=== PATIENT | female | born 1960 | race Caucasian/White ===

== ENCOUNTER 2019-12-23 09:17 | Emergency (ER) | payer BC ==
[2019-12-23] MEDS ORDERED: KETOROLAC 30 MG/ML 1 ML VIAL IVP STA (09:40)
[2019-12-23] MEDS ORDERED: SODIUM CHLORIDE 0.9% 500 ML 500 ML IV STA (09:40)
[2019-12-23] MEDS ORDERED: LIDOCAINE 5% PATCH TOPICAL STA (09:41)
--- NOTE | 2019-12-23 09:42 | ED ---
General Adult HPI - General Chief complaint: Chest Pain Stated complaint: Chest Pain Time Seen by Provider: 12/23/19 09:27 Source: patient Mode of arrival: ambulatory Limitations: no limitations - History of Present Illness Initial comments: Dictation was produced using [employer] dictation software. please excuse any grammatical, word or spelling errors. This patient was cared for during a federal and state declared state of emergency secondary to Covid 19 Chief Complaint: 59-year-old female she presents today with chest pain. History of Present Illness: 59-year-old female with no significant past medical history presents with chest pain. She reports that her pain is started this morning while she was watering the garden hose. She states she has pain whenever she touches her anterior chest or moves about. She states that her pain is sharp and localized to the anterior chest. She states the pain as sharp although severe. Does not radiate to the back. No numbness and paresthesias to the arms or legs. She states that her pain started when she was pulling the water hose aggressively to water the plants that her home. She has no history of coronary artery disease. Urinalysis diaphoresis or nausea. The ROS documented in this emergency department record has been reviewed and confirmed by me. Those systems with pertinent positive or negative responses have been documented in the HPI. All other systems are other negative and/or noncontributory. PHYSICAL EXAM: General Impression: Alert and oriented x3, not in acute distress HEENT: Normocephalic atraumatic, extra-ocular movements intact, pupils equal and reactive to light bilaterally, mucous membranes moist. Cardiovascular: Heart regular rate and rhythm Chest: Able to complete full sentences, no retractions, no tachypnea, reproducible chest pain with palpation to the sternum, pain is also reproduced with manipulation of the bilateral upper extremities Abdomen: abdomen soft, non-tender, non-distended, no organomegaly Musculoskeletal: Pulses present and equal in all extremities, no peripheral edema Motor: no focal deficits noted Neurological: CN II-XII grossly intact, no focal motor or sensory deficits noted Skin: Intact with no visualized rashes Psych: Normal affect and mood ED course: 59-year-old female with clinical presentation consistent with musculoskeletal chest pain. vital signs upon arrival are within acceptable limits. EKG is unremarkable. Laboratory evaluation obtained showing no acute processes.. Patient reevaluated at bedside after initiation of Toradol and Lidoderm patch. She states she is feeling significant relief. Patient clear for discharge and advised to follow- up with primary care physician. She is told to return to the emergency Department with any sort worsening symptoms. Otherwise patient will be discharged. EKG interpretation: Ventricular rate is 4, normal sinus rhythm, GA interval 140, QRS 80, QTc 445. No GA prolongation, no QTC prolongation, no ST or T-wave changes noted. Overall, this EKG is unremarkable - Related Data Home Medications Medication Instructions Recorded Confirmed ALPRAZolam [Xanax] 0.25 mg PO DAILY PRN 12/23/19 12/23/19 Acetaminophen [Tylenol Arthritis] 650 mg PO DAILY PRN 12/23/19 12/23/19 Citalopram Hydrobromide [CeleXA] 40 mg PO DAILY 12/23/19 12/23/19 Diazepam [Valium] 5 mg PO HS PRN 12/23/19 12/23/19 Diclofenac Sodium Gel [Voltaren 2 gm TOPICAL QID PRN 12/23/19 12/23/19 Gel] Hydrochlorothiazide [Hydrodiuril] 12.5 mg PO DAILY PRN 12/23/19 12/23/19 Levothyroxine Sodium [Synthroid] 175 mcg PO DAILY 12/23/19 12/23/19 Naproxen 500 mg PO BID 12/23/19 12/23/19 Allergies Allergy/AdvReac Type Severity Reaction Status Date / Time No Known Allergies Allergy Verified 12/23/19 10:41 Review of Systems ROS Statement: Those systems with pertinent positive or pertinent negative responses have been documented in the HPI. ROS Other: All systems not noted in ROS Statement are negative. Past Medical History Past Medical History: No Reported History History of Any Multi-Drug Resistant Organisms: None Reported Past Surgical History: Cholecystectomy, Hysterectomy, Orthopedic Surgery, Tonsillectomy Additional Past Surgical History / Comment(s): ankle Past Psychological History: Anxiety Smoking Status: Never smoker Past Alcohol Use History: Occasional Past Drug Use History: None Reported General Exam Limitations: no limitations Course Vital Signs 12/23/19 09:21 Temperature 98.2 F Pulse Rate 67 Respiratory 18 Rate Blood Pressure 141/83 O2 Sat by Pulse 100 Oximetry Medical Decision Making - Lab Data Result diagrams: 12/23/19 09:37 12/23/19 09:37 Lab Results 12/23/19 12/23/19 Range/Units 09:37 09:37 WBC 4.8 (3.8-10.6) k/uL RBC 4.63 (3.80-5.40) m/uL Hgb 14.2 (11.4-16.0) gm/dL Hct 44.9 (34.0-46.0) % MCV 97.1 (80.0-100.0) fL MCH 30.8 (25.0-35.0) pg MCHC 31.7 (31.0-37.0) g/dL RDW 12.7 (11.5-15.5) % Plt Count 191 (150-450) k/uL Neutrophils % 48 % Lymphocytes % 40 % Monocytes % 7 % Eosinophils % 3 % Basophils % 1 % Neutrophils # 2.3 (1.3-7.7) k/uL Lymphocytes # 1.9 (1.0-4.8) k/uL Monocytes # 0.3 (0-1.0) k/uL Eosinophils # 0.1 (0-0.7) k/uL Basophils # 0.0 (0-0.2) k/uL Sodium 135 L (137-145) mmol/L Potassium 5.3 H (3.5-5.1) mmol/L Chloride 104 (98-107) mmol/L Carbon Dioxide 22 (22-30) mmol/L Anion Gap 9 mmol/L BUN 14 (7-17) mg/dL Creatinine 0.59 (0.52-1.04) mg/dL Est GFR (CKD-EPI)AfAm >90 (>60 ml/min/1.73 sqM) Est GFR (CKD-EPI)NonAf >90 (>60 ml/min/1.73 sqM) Glucose 106 H (74-99) mg/dL Calcium 9.0 (8.4-10.2) mg/dL Disposition Clinical Impression: Chest pain Disposition: HOME SELF-CARE Condition: Good Instructions (If sedation given, give patient instructions): Chest Pain (ED) Is patient prescribed a controlled substance at d/c from ED?: No Referrals: Raffi Gregory MD [Primary Care Provider] - 1-2 days Time of Disposition: 11:37
[2019-12-23 09:55] LABS: Basophils % (A) 1 %; Eosinophils # (A) 0.1 k/uL (0-0.7); Eosinophils % (A) 3 %; HCT 44.9 % (34.0-46.0); HGB 14.2 gm/dL (11.4-16.0); Lymphocytes # (A) 1.9 k/uL (1.0-4.8); Lymphocytes % (A) 40 %; MCH 30.8 pg (25.0-35.0); MCHC 31.7 g/dL (31.0-37.0); MCV 97.1 fL (80.0-100.0); Mean Platelet Volume 7.9; Monocytes # (A) 0.3 k/uL (0-1.0); Monocytes % (A) 7 %; Neutrophils # (A) 2.3 k/uL (1.3-7.7); Neutrophils % (A) 48 %; Platelet Count 191 k/uL (150-450); RBC 4.63 m/uL (3.80-5.40); RDW 12.7 % (11.5-15.5); WBC 4.8 k/uL (3.8-10.6)
--- NOTE | 2019-12-23 10:05 | XR ---
EXAMINATION TYPE: XR chest 2V DATE OF EXAM: 12/23/2019 COMPARISON: NONE HISTORY: Chest pain. TECHNIQUE: Frontal and lateral views of the chest are obtained. FINDINGS: Overlying EKG leads are seen. There is no focal air space opacity, pleural effusion, or pne umothorax seen. The cardiac silhouette size is upper limits of normal. The osseous structures are intact. Cholecystectomy clips are noted. IMPRESSION: No acute cardiopulmonary process.
[2019-12-23 10:07] LABS: African American GFR (CKD) >90 (>60 ml/min/1.73 sqM); Anion Gap 9 mmol/L; Blood Urea Nitrogen 14 mg/dL (7-17); Carbon Dioxide 22 mmol/L (22-30); Chloride 104 mmol/L (98-107); Glucose 106 mg/dL (74-99); Non-African American GFR(CKD) >90 (>60 ml/min/1.73 sqM); Sodium 135 mmol/L (137-145)
[2019-12-23 10:17] LABS: Potassium 5.3 mmol/L (3.5-5.1)
[2019-12-23 11:53] VITALS: BP 119/70; PULSE 65; RESP 16; TEMP 98.3
== END 2019-12-23 11:56 | disposition home or self-care (01) ==
LOC: EC 09:17
DX: R07.89 Other chest pain (principal); F41.9 Anxiety disorder, unspecified; Z79.1 Long term (current) use of non-steroidal anti-inflammatories (NSAID); Z79.890 Hormone replacement therapy; Z79.899 Other long term (current) drug therapy
CPT/HCPCS: 36415; 93005; 80048; 85025; 71046; 99285; 96374; 96361; J1885

== ENCOUNTER 2021-02-09 09:31 | Emergency (ER) | payer BC ==
[2021-02-09 09:42] VITALS: RESP 18; TEMP 98.1
[2021-02-09] MEDS ORDERED: ASPIRIN 81 MG PO STA (10:11)
[2021-02-09] MEDS ORDERED: SODIUM CHLORIDE 0.9% 1,000 ML IV STA (10:11)
[2021-02-09] MEDS ORDERED: KETOROLAC 15 MG/ML 1 ML VIAL IVP STA (10:12)
--- NOTE | 2021-02-09 10:27 | ED ---
Chest Pain HPI - General Chief Complaint: Chest Pain Stated Complaint: shoulder & jaw pain Time Seen by Provider: 02/09/21 09:50 Source: patient, family, RN notes reviewed Mode of arrival: wheelchair Limitations: no limitations - History of Present Illness Initial Comments: This is a 6-year-old female history of thyroid disease and anxiety who states sh e had acid 7 AM this morning of midsternal chest pain 8/10 severity also some pain to the jaw and left arm. She states that the pain most part was sharp with respect to the jaw and arm pain she also states the pain from her chest radiated directly to her back. This was described as pressure-like pain MD Complaint: chest pain - Related Data Home Medications Medication Instructions Recorded Confirmed Citalopram Hydrobromide [CeleXA] 40 mg PO DAILY 12/23/19 02/09/21 Levothyroxine Sodium [Synthroid] 175 mcg PO DAILY 12/23/19 02/09/21 hydroCHLOROthiazide [Hydrodiuril] 12.5 mg PO DAILY PRN 12/23/19 02/09/21 Cholecalciferol [Vitamin D3 (25 25 mcg PO DAILY 02/09/21 02/09/21 Mcg = 1000 Iu)] Loratadine [Claritin] 10 mg PO DAILY 02/09/21 02/09/21 Multivitamins, Thera [Multivitamin 1 tab PO DAILY 02/09/21 02/09/21 (formulary)] peppermint oiL [Peppermint Oil] 50 mg PO DAILY 02/09/21 02/09/21 Previous Rx's Medication Instructions Recorded Ibuprofen 800 mg PO Q6HR PRN #20 tablet 02/09/21 Orphenadrine [Norflex] 100 mg PO Q12H #7 tablet.er 02/09/21 Allergies Allergy/AdvReac Type Severity Reaction Status Date / Time metformin AdvReac Stomach Verified 02/09/21 11:31 Pain Review of Systems ROS Statement: Those systems with pertinent positive or pertinent negative responses have been documented in the HPI. ROS Other: All systems not noted in ROS Statement are negative. EKG Findings - EKG Results: EKG: interpreted by LATRELL, WNL, sinus rhythm, normal axis, normal QRS, normal ST/T, no acute changes (Normal sinus rhythm of 76. Interval 144 QRS 82 QT since QTC 410/461, No acute ST-T wave changes) Past Medical History Past Medical History: No Reported History History of Any Multi-Drug Resistant Organisms: None Reported Past Surgical History: Cholecystectomy, Hysterectomy, Orthopedic Surgery, Tonsillectomy Additional Past Surgical History / Comment(s): ankle Past Psychological History: Anxiety Smoking Status: Never smoker Past Alcohol Use History: Occasional Past Drug Use History: None Reported General Exam - General Exam Comments Initial Comments: This is a well-developed well-nourished awake alert oriented 3 female Limitations: no limitations General appearance: alert, anxious Head exam: Present: atraumatic, normocephalic, normal inspection Eye exam: Present: normal appearance, PERRL, EOMI. Absent: scleral icterus, conjunctival injection, periorbital swelling ENT exam: Present: normal exam, mucous membranes moist Neck exam: Present: normal inspection, full ROM, other (No stridor JVD or bruits). Absent: tenderness, meningismus, lymphadenopathy Respiratory exam: Present: normal lung sounds bilaterally, chest wall tenderness (Reproducible tenderness palpation on the left and right sternal margins no step-off or crepitation this does reproduce the patient's pain with radiation to the back.). Absent: respiratory distress, wheezes, rales, rhonchi, stridor Cardiovascular Exam: Present: regular rate, normal rhythm, normal heart sounds. Absent: systolic murmur, diastolic murmur, rubs, gallop, clicks GI/Abdominal exam: Present: soft, normal bowel sounds. Absent: distended, tenderness, guarding, rebound, rigid Extremities exam: Present: normal inspection, full ROM, normal capillary refill. Absent: tenderness, pedal edema, joint swelling, calf tenderness Back exam: Present: normal inspection Neurological exam: Present: alert, oriented X3, CN II-XII intact Psychiatric exam: Present: normal affect, normal mood Skin exam: Present: warm, dry, intact, normal color. Absent: rash Course Vital Signs 02/09/21 02/09/21 02/09/21 09:38 10:00 11:51 Temperature 98.1 F Pulse Rate 78 81 77 Respiratory 18 18 18 Rate Blood Pressure 139/81 144/85 127/63 O2 Sat by Pulse 97 93 L 94 L Oximetry Chest Pain MDM - MDM Imaging reviewed no acute findings. Patient did get improvement after IV Toradol. The presentation is consistent with chest wall pain/costochondritis. Patient does remember that she had been doing gardening admitted precipitated the event. She has had stress tests in the past with no issues. Patient will be discharged on appropriate medication follow-up with her doctor return parameters were discussed. Disposition Clinical Impression: Costochondritis, Chest wall syndrome Disposition: HOME SELF-CARE Condition: Good Instructions (If sedation given, give patient instructions): Costochondritis (ED) Prescriptions: Ibuprofen 800 mg PO Q6HR PRN #20 tablet PRN Reason: Pain Orphenadrine [Norflex] 100 mg PO Q12H #7 tablet.er Is patient prescribed a controlled substance at d/c from ED?: No Referrals: Raffi Gregory MD [Primary Care Provider] - 1-2 days
[2021-02-09 10:40] LABS: Basophils % (A) 0 %; Eosinophils # (A) 0.1 k/uL (0-0.7); Eosinophils % (A) 3 %; HCT 42.6 % (34.0-46.0); HGB 14.6 gm/dL (11.4-16.0); Lymphocytes # (A) 1.5 k/uL (1.0-4.8); Lymphocytes % (A) 38 %; MCH 33.6 pg (25.0-35.0); MCHC 34.2 g/dL (31.0-37.0); MCV 98.4 fL (80.0-100.0); Mean Platelet Volume 7.9; Monocytes # (A) 0.2 k/uL (0-1.0); Monocytes % (A) 6 %; Neutrophils % (A) 51 %; Platelet Count 166 k/uL (150-450); RBC 4.33 m/uL (3.80-5.40); RDW 12.5 % (11.5-15.5)
--- NOTE | 2021-02-09 10:41 | XR ---
EXAMINATION TYPE: XR chest 2V DATE OF EXAM: 02/09/2021 COMPARISON: 12/23/2019 HISTORY: Chest pain TECHNIQUE: Frontal and lateral views of the chest are obtained. FINDINGS: There is no focal air space opacity, pleural effusion, or pneumothorax seen. The cardiac silhouette size is within normal limits. The osseous structures are intact. IMPRESSION: No acute cardiopulmonary process.
[2021-02-09 11:01] LABS: INR 0.9 (<1.2); Partial Thromboplastin Time 24.5 sec (22.0-30.0); Prothrombin Time 10.2 sec (9.0-12.0)
[2021-02-09 11:02] LABS: ALT 68 U/L (4-34); AST 57 U/L (14-36); African American GFR (CKD) >90 (>60 ml/min/1.73 sqM); Albumin 4.2 g/dL (3.5-5.0); Alkaline Phosphatase 99 U/L (38-126); Anion Gap 9 mmol/L; Blood Urea Nitrogen 8 mg/dL (7-17); Calcium 9.2 mg/dL (8.4-10.2); Carbon Dioxide 24 mmol/L (22-30); Chloride 105 mmol/L (98-107); Creatine Kinase 91 U/L (30-135); Glucose 133 mg/dL (74-99); Lipase 47 U/L (23-300); Magnesium 2.1 mg/dL (1.6-2.3); Non-African American GFR(CKD) >90 (>60 ml/min/1.73 sqM); Potassium 4.6 mmol/L (3.5-5.1); Sodium 138 mmol/L (137-145); Total Bilirubin 0.5 mg/dL (0.2-1.3)
[2021-02-09 11:54] VITALS: BP 127/63; PULSE 77
== END 2021-02-09 13:29 | disposition home or self-care (01) ==
LOC: EC 09:31
DX: M94.0 Chondrocostal junction syndrome [Tietze] (principal); M25.512 Pain in left shoulder; R68.84 Jaw pain; E07.9 Disorder of thyroid, unspecified; Z88.8 Allergy status to other drugs, medicaments and biological substances; Z79.890 Hormone replacement therapy
CPT/HCPCS: 36415; 93005; 85379; 80053; 82550; 83690; 83735; 84484; 85025; 85610; 85730; 71046; 99285; 96374; 96361; J1885

== ENCOUNTER 2021-08-23 10:56 | Emergency (ER) | payer BC ==
[2021-08-23 11:09] VITALS: BP 149/79; PULSE 79; RESP 18; TEMP 98.3
--- NOTE | 2021-08-23 11:34 | ED ---
Extremity Problem HPI - General Chief complaint: Extremity Problem,Nontraumatic Stated complaint: Left leg pain Time Seen by Provider: 08/23/21 11:17 Source: patient, family Mode of arrival: ambulatory Limitations: no limitations - History of Present Illness Initial comments: Patient is a 61-year-old female with a past medical history of DVT 2 not on bl ood thinners and Quintanilla cyst of the left knee who presents with left calf pain 1 week. No mechanism of injury. Patient states that the pain is a constant throbbing, 8/10 in severity, worse with movement. She does report that 2 weeks ago she noticed increased pain behind the left knee which she thought was due to her Quintanilla's cyst. She denies fever, chills, shortness of breath, chest pain, palpitations, dizziness, and abdominal pain. - Related Data Home Medications Medication Instructions Recorded Confirmed Citalopram Hydrobromide [CeleXA] 40 mg PO DAILY 12/23/19 02/09/21 Levothyroxine Sodium [Synthroid] 175 mcg PO DAILY 12/23/19 02/09/21 hydroCHLOROthiazide [Hydrodiuril] 12.5 mg PO DAILY PRN 12/23/19 02/09/21 Cholecalciferol [Vitamin D3 (25 25 mcg PO DAILY 02/09/21 02/09/21 Mcg = 1000 Iu)] Loratadine [Claritin] 10 mg PO DAILY 02/09/21 02/09/21 Multivitamins, Thera [Multivitamin 1 tab PO DAILY 02/09/21 02/09/21 (formulary)] peppermint oiL [Peppermint Oil] 50 mg PO DAILY 02/09/21 02/09/21 Previous Rx's Medication Instructions Recorded Ibuprofen 800 mg PO Q6HR PRN #20 tablet 02/09/21 Orphenadrine [Norflex] 100 mg PO Q12H #7 tablet.er 02/09/21 Allergies Allergy/AdvReac Type Severity Reaction Status Date / Time metformin AdvReac Stomach Verified 08/23/21 11:07 Pain Review of Systems ROS Statement: Those systems with pertinent positive or pertinent negative responses have been documented in the HPI. ROS Other: All systems not noted in ROS Statement are negative. Past Medical History Past Medical History: Deep Vein Thrombosis (DVT), Thyroid Disorder History of Any Multi-Drug Resistant Organisms: None Reported Past Surgical History: Cholecystectomy, Hysterectomy, Orthopedic Surgery, Tonsillectomy Additional Past Surgical History / Comment(s): ankle Past Psychological History: Anxiety Smoking Status: Never smoker Past Alcohol Use History: Occasional Past Drug Use History: None Reported General Exam Limitations: no limitations Course Vital Signs 08/23/21 11:07 Temperature 98.3 F Pulse Rate 79 Respiratory 18 Rate Blood Pressure 149/79 O2 Sat by Pulse 93 L Oximetry Medical Decision Making - Medical Decision Making This is a 61-year-old female with a past medical history of DVT 2 nontender as Quintanilla's cyst of the left knee presents with left calf pain 1 week. Patient looks well and is hemodynamically stable. Dimer is negative. Left extremity venous ultrasound negative for DVT. Results discussed with patient. Symptoms likely due to previously existing Quintanilla's cyst. Patient instructed to follow up with primary care provider in 1 to 2 days for further evaluation and treatment. Return parameters discussed. - Lab Data Result diagrams: 08/23/21 12:09 08/23/21 12:09 Lab Results 08/23/21 08/23/21 08/23/21 Range/Units 12:09 12:09 12:09 WBC 4.5 (3.8-10.6) k/uL RBC 4.28 (3.80-5.40) m/uL Hgb 15.1 (11.4-16.0) gm/dL Hct 44.5 (34.0-46.0) % MCV 103.9 H (80.0-100.0) fL MCH 35.2 H (25.0-35.0) pg MCHC 33.8 (31.0-37.0) g/dL RDW 13.6 (11.5-15.5) % Plt Count 190 (150-450) k/uL MPV 7.5 Neutrophils % 50 % Lymphocytes % 39 % Monocytes % 6 % Eosinophils % 2 % Basophils % 0 % Neutrophils # 2.2 (1.3-7.7) k/uL Lymphocytes # 1.8 (1.0-4.8) k/uL Monocytes # 0.3 (0-1.0) k/uL Eosinophils # 0.1 (0-0.7) k/uL Basophils # 0.0 (0-0.2) k/uL Macrocytosis Slight D-Dimer 0.26 (<0.60) mg/L FEU Sodium 134 L (137-145) mmol/L Potassium 4.9 (3.5-5.1) mmol/L Chloride 104 (98-107) mmol/L Carbon Dioxide 22 (22-30) mmol/L Anion Gap 8 mmol/L BUN 7 (7-17) mg/dL Creatinine 0.70 (0.52-1.04) mg/dL Est GFR (CKD-EPI)AfAm >90 (>60 ml/min/1.73 sqM) Est GFR (CKD-EPI)NonAf >90 (>60 ml/min/1.73 sqM) Glucose 115 H (74-99) mg/dL Calcium 9.1 (8.4-10.2) mg/dL Total Bilirubin 0.7 (0.2-1.3) mg/dL AST 69 H (14-36) U/L ALT 65 H (4-34) U/L Alkaline Phosphatase 86 (38-126) U/L Total Protein 7.9 (6.3-8.2) g/dL Albumin 4.3 (3.5-5.0) g/dL Disposition Clinical Impression: Pain of left calf Disposition: HOME SELF-CARE Condition: Good Additional Instructions: Follow-up with primary care provider in 1 to 2 days. Return to the ER if you experience any new, concerning, or worsening symptoms. Is patient prescribed a controlled substance at d/c from ED?: No Referrals: Nonstaff,Physician [REFERRING] - 1-2 days Time of Disposition: 12:54 Decision Time: 12:55
--- NOTE | 2021-08-23 12:10 | US ---
EXAMINATION TYPE: US venous doppler duplex LE LT DATE OF EXAM: 08/23/2021 11:30 AM COMPARISON: NONE CLINICAL HISTORY: left calf pain. Hx of DVT and PE per patient SIDE PERFORMED: Left TECHNIQUE: The lower extremity deep venous system is examined utilizing real time linear array sonog rudy with graded compression, doppler sonography and color-flow sonography. VESSELS IMAGED: Common Femoral Vein Deep Femoral Vein Greater Saphenous Vein * Femoral Vein Popliteal Vein Small Saphenous Vein * Proximal Calf Veins (* superficial vessels) PTVs ATVs Peroneals Left Leg: Negative for DVT Grayscale, color doppler, spectral doppler imaging performed of the deep veins of the left lower extr emity. There is normal flow, compressibility, vascular waveforms. IMPRESSION: No ultrasound evidence for acute DVT in the left lower extremity.
[2021-08-23 12:41] LABS: Basophils % (A) 0 %; Eosinophils # (A) 0.1 k/uL (0-0.7); Eosinophils % (A) 2 %; HCT 44.5 % (34.0-46.0); HGB 15.1 gm/dL (11.4-16.0); Lymphocytes # (A) 1.8 k/uL (1.0-4.8); Lymphocytes % (A) 39 %; MCH 35.2 pg (25.0-35.0); MCHC 33.8 g/dL (31.0-37.0); MCV 103.9 fL (80.0-100.0); Macrocytosis Slight; Mean Platelet Volume 7.5; Monocytes # (A) 0.3 k/uL (0-1.0); Monocytes % (A) 6 %; Neutrophils # (A) 2.2 k/uL (1.3-7.7); Neutrophils % (A) 50 %; Platelet Count 190 k/uL (150-450); RBC 4.28 m/uL (3.80-5.40); RDW 13.6 % (11.5-15.5); WBC 4.5 k/uL (3.8-10.6)
[2021-08-23 12:42] LABS: ALT 65 U/L (4-34); AST 69 U/L (14-36); African American GFR (CKD) >90 (>60 ml/min/1.73 sqM); Albumin 4.3 g/dL (3.5-5.0); Alkaline Phosphatase 86 U/L (38-126); Anion Gap 8 mmol/L; Blood Urea Nitrogen 7 mg/dL (7-17); Calcium 9.1 mg/dL (8.4-10.2); Carbon Dioxide 22 mmol/L (22-30); Chloride 104 mmol/L (98-107); Glucose 115 mg/dL (74-99); Non-African American GFR(CKD) >90 (>60 ml/min/1.73 sqM); Potassium 4.9 mmol/L (3.5-5.1); Sodium 134 mmol/L (137-145); Total Bilirubin 0.7 mg/dL (0.2-1.3); Total Protein 7.9 g/dL (6.3-8.2)
== END 2021-08-23 13:02 | disposition home or self-care (01) ==
LOC: EC 10:56
DX: M79.662 Pain in left lower leg (principal); Z88.8 Allergy status to other drugs, medicaments and biological substances
CPT/HCPCS: 36415; 80053; 85025; 85379; 99283

== ENCOUNTER 2024-11-18 07:20 | Emergency (ER) | payer BC ==
[2024-11-18 07:33] VITALS: BP 139/82; PULSE 68; RESP 18; TEMP 97.7
--- NOTE | 2024-11-18 08:18 | US ---
EXAMINATION TYPE: US venous doppler duplex LE LT DATE OF EXAM: 11/18/2024 8:04 AM COMPARISON: NONE CLINICAL INDICATION: Female, 64 years old with history of pain hx of dvt; pain in lower left leg, h/o dvt in 2015 in left leg, no swelling TECHNIQUE: The lower extremity deep venous system is examined utilizing real time linear array sonog rudy with graded compression, color doppler sonography, and spectral doppler. SIDE PERFORMED: Left FINDINGS: VESSELS IMAGED: Common Femoral Vein Deep Femoral Vein Greater Saphenous Vein * Femoral Vein Popliteal Vein Small Saphenous Vein * Proximal Calf Veins (* superficial vessels) Left Leg: Negative for DVT, Color Doppler imaging shows patency of the vessels. Spectral waveforms a re within normal limits. at site of bruise there is hyperechoic material that represent hematoma IMPRESSION: No ultrasound evidence for deep venous thrombosis. [facility], , 11/18/2024 8:16 AM
--- NOTE | 2024-11-18 08:32 | ED ---
General Adult HPI - General Chief complaint: Recheck/Abnormal Lab/Rx Stated complaint: blood clot symptoms, left leg pain Time Seen by Provider: 11/18/24 07:23 Source: patient Mode of arrival: ambulatory Limitations: no limitations - History of Present Illness Initial comments: Dictation was produced using [employer] dictation software. please excuse any gramm atical, word or spelling errors. Chief Complaint: 64-year-old female presents to the ER for shortness of breath and leg pain History of Present Illness: Patient 64-year-old female presents emergency department with shortness of breath and leg pain. States that she has history of DVT does not take any anticoagulation medications. Patient concerned she has a DVT again. She also complains of associated shortness of breath. Denies any palpitations. Patient complains of pain to her left lateral calf, popliteal space and left medial thigh. The ROS documented in this emergency department record has been reviewed and confirmed by me. Those systems with pertinent positive or negative responses have been documented in the HPI. All other systems are other negative and/or noncontributory. - Related Data Home Medications Medication Instructions Recorded Confirmed Citalopram Hydrobromide [CeleXA] 40 mg PO DAILY 12/23/19 02/09/21 Levothyroxine Sodium [Synthroid] 175 mcg PO DAILY 12/23/19 02/09/21 hydroCHLOROthiazide [Hydrodiuril] 12.5 mg PO DAILY PRN 12/23/19 02/09/21 Cholecalciferol [Vitamin D3 (25 25 mcg PO DAILY 02/09/21 02/09/21 Mcg = 1000 Iu)] Loratadine [Claritin] 10 mg PO DAILY 02/09/21 02/09/21 Multivitamins, Thera [Multivitamin 1 tab PO DAILY 02/09/21 02/09/21 (formulary)] peppermint oiL [Peppermint Oil] 50 mg PO DAILY 02/09/21 02/09/21 Previous Rx's Medication Instructions Recorded Ibuprofen 800 mg PO Q6HR PRN #20 tablet 02/09/21 Orphenadrine [Norflex] 100 mg PO Q12H #7 tablet.er 02/09/21 Allergies Allergy/AdvReac Type Severity Reaction Status Date / Time metformin AdvReac Stomach Verified 11/18/24 07:33 Pain Review of Systems ROS Statement: Those systems with pertinent positive or pertinent negative responses have been documented in the HPI. ROS Other: All systems not noted in ROS Statement are negative. Past Medical History Past Medical History: Deep Vein Thrombosis (DVT), Thyroid Disorder History of Any Multi-Drug Resistant Organisms: None Reported Past Surgical History: Cholecystectomy, Hysterectomy, Orthopedic Surgery, Tonsillectomy Additional Past Surgical History / Comment(s): ankle Past Psychological History: Anxiety Smoking Status: Never smoker Past Alcohol Use History: Occasional Past Drug Use History: None Reported General Exam - General Exam Comments Initial Comments: PHYSICAL EXAM: General Impression: Alert and oriented x3, not in acute distress HEENT: Normocephalic atraumatic, extra-ocular movements intact, pupils equal and reactive to light bilaterally, mucous membranes moist. Cardiovascular: Heart regular rate and rhythm Chest: Able to complete full sentences, no retractions, no tachypnea Abdomen: abdomen soft, non-tender, non-distended, no organomegaly Musculoskeletal: Pulses present and equal in all extremities, no peripheral edema Motor: no focal deficits noted Neurological: CN II-XII grossly intact, no focal motor or sensory deficits noted Skin: Intact with no visualized rashes Psych: Normal affect and mood Limitations: no limitations Course Vital Signs 11/18/24 07:31 Temperature 97.7 F Pulse Rate 68 Respiratory 18 Rate Blood Pressure 139/82 O2 Sat by Pulse 95 Oximetry Medical Decision Making - Medical Decision Making Was pt. sent in by a medical professional or institution (, PA, SCREENING NURSE, urgent care, hospital, or [facility]...) When possible be specific @ -No Did you speak to anyone other than the patient for history (EMS, parent, family, police, friend...)? What history was obtained from this source @ -No Did you review nursing and triage notes (agree or disagree)? Why? @ -I reviewed and agree with nursing and triage notes Were old charts reviewed (outside hosp., previous admission, EMS record, old EKG, old radiological studies, urgent care reports/EKG's, [facility] records)? Report findings @ -No old charts were reviewed Differential Diagnosis (chest pain, altered mental status, abdominal pain women, abdominal pain men, vaginal bleeding, musculoskeletal, weakness, fever, dyspnea, syncope, headache, dizziness, GI bleed, back pain, seizure, CVA, palpatations, mental health)? @ -DVT, cellulitis, strain EKG interpreted by me (3pts min.). @ -My EKG interpretation: Ventricular rate 62, sinus rhythm, NM interval 142, QRS 83, QTc 445. No NM prolongation, no QTC prolongation, no ST or T-wave changes noted. Overall, this EKG is unremarkable X-rays interpreted by me (1pt min.). @ -X-rays unremarkable CT interpreted by me (1pt min.). @ -None done U/S interpreted by me (1pt. min.). @ -Left leg shows no DVT What testing was considered but not performed or refused? (CT, X-rays, U/S, labs)? Why? @ -None What meds were considered but not given or refused? Why? @ -None Was smoking cessation discussed for >3mins.? @ -No Were there social determinants of health that impacted care today? How? (Homelessness, low income, unemployed, alcoholism, drug addiction, transportation, low edu. Level, literacy, decrease access to med. care, fdc, rehab)? @ -No Was there de-escalation of care discussed even if they declined (Discuss DNR or withdrawal of care, Hospice)? DNR status @ -No What co-morbidities impacted this encounter? (DM, HTN, Smoking, COPD, CAD, Cancer, CVA, ARF, Chemo, Hep., AIDS, mental health diagnosis, sleep apnea, morbid obesity)? @ -History of DVT Was patient admitted / discharged? Hospital course, mention meds given and route, prescriptions, significant lab abnormalities, going to OR and other pertinent info. @ -64-year-old female presents with left lower extremity symptoms concerning for DVT. Vital signs are stable. Patient well-appearing at the bedside with no acute distress she does report associated shortness of breath. Laboratory evaluation is unremarkable. D-dimer is negative. Metabolic panel within acceptable limits. X-ray nonacute. Left lower extremity ultrasound shows no acute processes. Did you discuss the management of the patient with other professionals (professionals i.e. , PA, SCREENING NURSE, lab, RT, psych nurse, social sciences professor, family service aide, teacher, chief growth officer, disability case manager)? Give summary @ -No Was critical care preformed (if so, how long)? @ -No Undiagnosed new problem with uncertain prognosis? @ -No Drug Therapy requiring intensive monitoring for toxicity (Heparin, Nitro, Insulin, Cardizem)? @ -No Were any procedures done? @ -No Diagnosis/symptom? Acute, or Chronic, or Acute on Chronic? Uncomplicated (without systemic symptoms) or Complicated (systemic symptoms)? @ -Leg pain Side effects of treatment? @ -No Exacerbation, Progression, or Severe Exacerbation? @ -No Poses a threat to life or bodily function? How? (Chest pain, [place], [place], pneumonia, PE, COPD, DKA, ARF, appy, cholecystitis, CVA, Diverticulitis, Homicidal, Suicidal, threat to staff... and all critical care pts) @ -No - Lab Data Result diagrams: 11/18/24 08:35 11/18/24 08:35 Lab Results 11/18/24 11/18/24 11/18/24 Range/Units 08:35 08:35 08:35 WBC 4.15 L (4.50-10.00) 10*3/uL RBC 4.06 L (4.10-5.20) 10*6/uL Hgb 14.3 (12.0-15.0) g/dL Hct 40.6 (37.2-46.3) % MCV 100.0 H (80.0-97.0) fL MCH 35.2 H (27.0-32.0) pg MCHC 35.2 (32.0-37.0) g/dL Plt Count 178 (140-440) 10*3/uL MPV 10.0 (9.5-12.2) fL Immature Gran % (Auto) 0.7 % Neutrophils % 44.2 % Lymphocytes % 45.5 % Monocytes % 8.2 % Eosinophils % 1.2 % Basophils % 0.2 % Immature Gran # 0.03 (0.00-0.04) 10*3/uL Neutrophils # 1.83 (1.80-7.70) 10*3/uL Lymphocytes # 1.89 (0.90-5.00) 10*3/uL Monocytes # 0.34 (0.20-1.00) 10*3/uL Eosinophils # 0.05 (0.04-0.35) 10*3/uL Basophils # 0.01 (0.00-0.10) 10*3/uL PT 10.3 (10.0-12.5) sec INR 0.9 (<1.2) APTT 24.6 (22.0-30.0) sec D-Dimer 0.23 (<0.60) mg/L FEU Sodium 136 L (137-145) mmol/L Potassium 4.4 (3.5-5.1) mmol/L Chloride 104 (98-107) mmol/L Carbon Dioxide 23 (22-30) mmol/L Anion Gap 9 mmol/L BUN 10 (7-17) mg/dL Creatinine 0.54 (0.52-1.04) mg/dL Est GFR (CKD-EPI)AfAm >90 (>60 ml/min/1.73 sqM) Est GFR (CKD-EPI)NonAf >90 (>60 ml/min/1.73 sqM) Glucose 123 H (74-99) mg/dL Calcium 8.9 (8.4-10.2) mg/dL Magnesium 2.0 (1.6-2.3) mg/dL Total Bilirubin 0.6 (0.2-1.3) mg/dL AST 32 (14-36) U/L ALT 37 H (4-34) U/L Alkaline Phosphatase 85 (38-126) U/L Troponin I (0.000-0.034) ng/mL NT-Pro-B Natriuret Pep 183 pg/mL Total Protein 6.9 (6.3-8.2) g/dL Albumin 4.2 (3.5-5.0) g/dL // Range/Units 08:35 WBC (4.50-10.00) 10*3/uL RBC (4.10-5.20) 10*6/uL Hgb (12.0-15.0) g/dL Hct (37.2-46.3) % MCV (80.0-97.0) fL MCH (27.0-32.0) pg MCHC (32.0-37.0) g/dL Plt Count (140-440) 10*3/uL MPV (9.5-12.2) fL Immature Gran % (Auto) % Neutrophils % % Lymphocytes % % Monocytes % % Eosinophils % % Basophils % % Immature Gran # (0.00-0.04) 10*3/uL Neutrophils # (1.80-7.70) 10*3/uL Lymphocytes # (0.90-5.00) 10*3/uL Monocytes # (0.20-1.00) 10*3/uL Eosinophils # (0.04-0.35) 10*3/uL Basophils # (0.00-0.10) 10*3/uL PT (10.0-12.5) sec INR (<1.2) APTT (22.0-30.0) sec D-Dimer (<0.60) mg/L FEU Sodium (137-145) mmol/L Potassium (3.5-5.1) mmol/L Chloride (98-107) mmol/L Carbon Dioxide (22-30) mmol/L Anion Gap mmol/L BUN (7-17) mg/dL Creatinine (0.52-1.04) mg/dL Est GFR (CKD-EPI)AfAm (>60 ml/min/1.73 sqM) Est GFR (CKD-EPI)NonAf (>60 ml/min/1.73 sqM) Glucose (74-99) mg/dL Calcium (8.4-10.2) mg/dL Magnesium (1.6-2.3) mg/dL Total Bilirubin (0.2-1.3) mg/dL AST (14-36) U/L ALT (4-34) U/L Alkaline Phosphatase (38-126) U/L Troponin I <0.012 (0.000-0.034) ng/mL NT-Pro-B Natriuret Pep pg/mL Total Protein (6.3-8.2) g/dL Albumin (3.5-5.0) g/dL Disposition Clinical Impression: Leg pain Disposition: HOME SELF-CARE Condition: Good Instructions (If sedation given, give patient instructions): Leg Pain (ED) Is patient prescribed a controlled substance at d/c from ED?: No Referrals: Almas Banerjee DO [Primary Care Provider] - 1-2 days Time of Disposition: 09:55
[2024-11-18 08:50] LABS: Basophils # (A) 0.01 10*3/uL (0.00-0.10); Basophils % (A) 0.2 %; Eosinophils # (A) 0.05 10*3/uL (0.04-0.35); Eosinophils % (A) 1.2 %; HCT 40.6 % (37.2-46.3); HGB 14.3 g/dL (12.0-15.0); Lymphocytes # (A) 1.89 10*3/uL (0.90-5.00); Lymphocytes % (A) 45.5 %; MCH 35.2 pg (27.0-32.0); MCHC 35.2 g/dL (32.0-37.0); Monocytes # (A) 0.34 10*3/uL (0.20-1.00); Monocytes % (A) 8.2 %; Neutrophils # (A) 1.83 10*3/uL (1.80-7.70); Neutrophils % (A) 44.2 %; Platelet Count 178 10*3/uL (140-440); RBC 4.06 10*6/uL (4.10-5.20); RDW 12.2 % (11.5-14.5); WBC 4.15 10*3/uL (4.50-10.00)
[2024-11-18 09:05] LABS: ALT 37 U/L (4-34); AST 32 U/L (14-36); African American GFR (CKD) >90 (>60 ml/min/1.73 sqM); Albumin 4.2 g/dL (3.5-5.0); Alkaline Phosphatase 85 U/L (38-126); Anion Gap 9 mmol/L; Blood Urea Nitrogen 10 mg/dL (7-17); Calcium 8.9 mg/dL (8.4-10.2); Carbon Dioxide 23 mmol/L (22-30); Chloride 104 mmol/L (98-107); Glucose 123 mg/dL (74-99); Non-African American GFR(CKD) >90 (>60 ml/min/1.73 sqM); Potassium 4.4 mmol/L (3.5-5.1); Sodium 136 mmol/L (137-145); Total Bilirubin 0.6 mg/dL (0.2-1.3); Total Protein 6.9 g/dL (6.3-8.2)
[2024-11-18 09:08] LABS: INR 0.9 (<1.2); Partial Thromboplastin Time 24.6 sec (22.0-30.0); Prothrombin Time 10.3 sec (10.0-12.5)
[2024-11-18 09:14] LABS: NT-Pro-B-Type Natriuretic Pept 183 pg/mL
--- NOTE | 2024-11-18 09:20 | XR ---
EXAMINATION TYPE: XR chest 2V DATE OF EXAM: 11/18/2024 9:06 AM COMPARISON: 02/09/2021 CLINICAL INDICATION: Female, 64 years old with history of dyspnea,: Shortness of breath TECHNIQUE: XR chest 2V views of the chest are obtained. FINDINGS: Scattered senescent parenchymal changes noted. Hyperinflation compatible with COPD. No evidence for infiltrate. No evidence for atelectasis. Heart size is stable. Mediastinal structures are stable and grossly unremarkable. No evidence for hilar prominence. Degenerative changes dorsal spine. IMPRESSION: 1. No evidence for acute pulmonary disease. [facility], , 11/18/2024 9:17 AM
== END 2024-11-18 10:04 | disposition home or self-care (01) ==
LOC: EC 07:20
DX: M79.662 Pain in left lower leg (principal); Z88.8 Allergy status to other drugs, medicaments and biological substances; Z86.718 Personal history of other venous thrombosis and embolism
CPT/HCPCS: 36415; 71046; 80053; 83735; 83880; 84484; 85025; 85379; 85610; 85730; 93005; 99284

== ENCOUNTER → 2025-02-13 | Outpatient (CLI) | payer BC ==
--- NOTE | 2025-02-13 17:32 | CT ---
EXAMINATION TYPE: CT soft tissue neck w con DATE OF EXAM: 02/13/2025 4:40 PM COMPARISON: None. CLINICAL INDICATION: Female, 64 years old with history of R22.1 LOCALIZED SWELLING, MASS AND LUMP, NE CK; PHH, mass of neck TECHNIQUE: Standard enhanced CT of the neck. Axial sections with coronal and sagittal reformats were obtained. Contrast used:100 mL of Isovue 300 with IV Contrast, (None if empty) CT DLP: 884.7 mGycm, Automated exposure control for dose reduction was used. FINDINGS: Brain: Visualized portions are grossly unremarkable. Orbits: Unremarkable Sinuses: Grossly unremarkable. Spaces of the neck: Clear and symmetric. Musculoskeletal: No acute osseous pathology. Lymph nodes: Multiple nonenlarged lymph nodes are seen along both anterior chains of the neck. Vascular structures: Visualized major arteries are patent without evidence of aneurysm. Thoracic Inlet/airway: Airway is patent. The lung apices are clear. Soft tissues/Thyroid: Thyroid and remainder of the soft tissues are unremarkable. Other: none. IMPRESSION No evidence of an acute abnormality in the neck. No abnormal fluid collection or mass identified. [facility], , 02/13/2025 5:29 PM
== END | disposition home or self-care (01) ==
LOC: RADCTMAIN 15:57
PROVIDERS: ATTEND Family Medicine
DX: R22.1 Localized swelling, mass and lump, neck (principal)
CPT/HCPCS: 70491; Q9967